=== PATIENT | female | born 1965 | race Two or more races ===

== ENCOUNTER 2018-10-09 21:10 | Inpatient (IN) | payer MEDICAID ==
[~2018-10-09] VITALS: Ht 160 cm; Wt 75.8 kg
[2018-10-09] MEDS ORDERED: ATORVASTATIN CA20 MG ORAL (21:16)
[2018-10-09] MEDS ORDERED: TOPAMAX25 MG ORAL (21:16)
[2018-10-09] MEDS ORDERED: TIZANIDINE HCL4 MG ORAL (21:17)
[2018-10-09] MEDS ORDERED: ACETAMINOPHEN500 M5 ORAL (21:17)
[2018-10-09] MEDS ORDERED: MAGNESIUM OXID240 MG PO (21:18)
[2018-10-09] MEDS ORDERED: NIMODIPINE30 MG ORAL (21:18)
[2018-10-09 21:20] VITALS: BP 143/76
--- NOTE | 2018-10-09 21:20 | NUR ---
ED Nurse Note: RA [id number] from home with c/o generalized weakness, headache on left side. pain is 9/10 pt has hx of stroke. pt states she struggles walking due to previous stalks left side weakeness present
--- NOTE | 2018-10-09 21:26 | Emergency Room Report ---
History of Present Illness General Chief Complaint: General Complaint Source: Patient, EMS Present Illness HPI Patient presents with one hour of blurred vision, increased weakness and worsened headache. She has a chronic headache. She has been told that she has problems with circulation to her brain. She's had a stroke recently. There is left-sided weakness. She denies any chest pain or palpitations. There is nausea and she vomited one time this morning. The pain is rated 9/10 and pressure and right frontal. There is no loss of vision but she says her vision is blurry. She's also anxious. She denies any fevers or chills, productive cough or dyspnea. There's been no dysuria or change in bowels. She has chronic weakness and decreased sensation on the left-hand side. She denies h/o migraines. She says the headache has been present since the stroke but it has worsened today. She takes topiramate and tizanidine. She also take nimodipine. Allergies: Coded Allergies: No Known Allergies (Unverified , 10/09/18) Patient History Past Medical History: see triage record Social History: Denies: smoking, alcohol use, drug use Social History Narrative with daughter Reviewed Nursing Documentation: PMH: Agreed; PSxH: Agreed Nursing Documentation-PMH Past Medical History: No History, Except For Hx Cerebrovascular Accident: Yes Review of Systems All Other Systems: negative except mentioned in HPI Physical Exam Vital Signs Date Time Temp Pulse Resp B/P (MAP) Pulse Ox O2 Delivery O2 Flow Rate FiO2 10/09/18 21:10 98.1 86 18 96 Room Air Sp02 EP Interpretation: reviewed, normal General Appearance: well appearing, no apparent distress, GCS 15 Head: normocephalic Eyes: bilateral eye normal inspection, bilateral eye PERRL, bilateral eye EOMI ENT: moist mucus membranes Neck: supple Respiratory: lungs clear, normal breath sounds Cardiovascular #1: regular rate, rhythm Cardiovascular #2: 2+ radial (R) Gastrointestinal: normal inspection, normal bowel sounds, non tender, no mass, non-distended Musculoskeletal: back normal, gait/station normal, normal range of motion, no calf tenderness Neurologic: alert, oriented x3, panel instrument repairer III-XII nml as tested, DTRs symmetric, motor weakness - L sided, sensory deficit - minimal L sided Psychiatric: depressed affect, anxious Skin: normal inspection, warm/dry Medical Decision Making Diagnostic Impression: Primary Impression: Head ache Qualified Codes: G44.89 - Other headache syndrome Additional Impressions: Status post stroke UTI (urinary tract infection) Qualified Codes: N30.00 - Acute cystitis without hematuria Elevated liver enzymes ER Course Patient presents with blurred vision headache and possibly increased weakness with a history of strokes. Differential includes stroke, migraine, brain bleed , anxiety, acute myocardial infarction amongst others. The patient will be evaluated with EKG, CT of the head, chest x-ray and labs. The patient will be treated with gentle IV hydration, Zofran and morphine. Stomach cardiac cath technician. EKG no injury. CXR unremarkable. CT involutional changes. Elevated liver function tests. Pyuria. Rocephin given. Repeat morphine as still with headache. Neuro unchanged. Needs observation and repeat neurologic exam. Possible MRI. Admit tele Dr. Landis. Laboratory Tests Test 10/09/18 21:27 White Blood Count 5.7 K/UL (4.8-10.8) Red Blood Count 3.84 M/UL (4.20-5.40) L Hemoglobin 12.1 G/DL (12.0-16.0) Hematocrit 35.9 % (37.0-47.0) L Mean Corpuscular Volume 94 FL (80-99) Mean Corpuscular Hemoglobin 31.6 PG (27.0-31.0) H Mean Corpuscular Hemoglobin Concent 33.8 G/DL (32.0-36.0) Red Cell Distribution Width 12.5 % (11.6-14.8) Platelet Count 208 K/UL (150-450) Mean Platelet Volume 7.0 FL (6.5-10.1) Neutrophils (%) (Auto) 45.5 % (45.0-75.0) Lymphocytes (%) (Auto) 42.3 % (20.0-45.0) Monocytes (%) (Auto) 8.6 % (1.0-10.0) Eosinophils (%) (Auto) 2.0 % (0.0-3.0) Basophils (%) (Auto) 1.6 % (0.0-2.0) Prothrombin Time 10.5 SEC (9.30-11.50) Prothrombin Time INR 1.0 (0.9-1.1) PTT 26 SEC (23-33) Urine Color Pale yellow Urine Appearance Slightly cloudy Urine pH 7 (4.5-8.0) Urine Specific [place] 1.010 (1.005-1.035) Urine Protein Negative (NEGATIVE) Urine Glucose (UA) Negative (NEGATIVE) Urine Ketones Negative (NEGATIVE) Urine Blood Negative (NEGATIVE) Urine Nitrite Negative (NEGATIVE) Urine Bilirubin Negative (NEGATIVE) Urine Urobilinogen Normal MG/DL (0.0-1.0) Urine Leukocyte Esterase 3+ (NEGATIVE) H Urine RBC 0-2 /HPF (0 - 2) Urine WBC 20-30 /HPF (0 - 2) H Urine Squamous Epithelial Cells Moderate /LPF (NONE/OCC) H Urine Bacteria Moderate /HPF (NONE) H Sodium Level 144 MMOL/L (136-145) Potassium Level 3.5 MMOL/L (3.5-5.1) Chloride Level 108 MMOL/L (98-107) H Carbon Dioxide Level 26 MMOL/L (21-32) Anion Gap 10 mmol/L (5-15) Blood Urea Nitrogen 18 mg/dL (7-18) Creatinine 0.7 MG/DL (0.55-1.30) Estimate Glomerular Filtration Rate > 60 mL/min (>60) Glucose Level 110 MG/DL (74-106) H Calcium Level 9.4 MG/DL (8.5-10.1) Total Bilirubin 0.4 MG/DL (0.2-1.0) Aspartate Amino Transferase (AST) 61 U/L (15-37) H Alanine Aminotransferase (ALT) 206 U/L (12-78) H Alkaline Phosphatase 159 U/L (46-116) H Total Creatine Kinase 59 U/L (26-308) Troponin I 0.000 ng/mL (0.000-0.056) Pro-B-Type Natriuretic Peptide 55 pg/mL (0-125) Total Protein 7.7 G/DL (6.4-8.2) Albumin 3.9 G/DL (3.4-5.0) Globulin 3.8 g/dL Albumin/Globulin Ratio 1.0 (1.0-2.7) EKG Diagnostic Results Rate: normal Rhythm: NSR ST Segments: no acute changes - Incomplete right bundle-branch block Rhythm Strip Diag. Results EP Interpretation: yes Rhythm: NSR, no PVC's, no ectopy Chest X-Ray Diagnostic Results Chest X-Ray Diagnostic Results : Chest X-Ray Ordered: Yes # of Views/Limited/Complete: 1 View Indication: Other EP Interpretation: Yes Interpretation: no consolidation, no effusion, no pneumothorax Impression: No acute disease Electronically Signed by: Electronically signed by Shiva Torres MD CT/MRI/US Diagnostic Results CT/MRI/US Diagnostic Results : Imaging Test Ordered: head Impression involutional changes Last Vital Signs Date Time Temp Pulse Resp B/P (MAP) Pulse Ox O2 Delivery O2 Flow Rate FiO2 10/10/18 12:00 97.6 67 20 114/67 (83) 97 10/10/18 08:00 Room Air Status: improved Disposition: ADMITTED INPATIENT Condition: Serious Shiva Torres MD October 09, 2018 21:26
[2018-10-09] MEDS ORDERED: Morphine Sulfate 4mg/ml Inj (IV USE ONLY) IVP ONE (21:30)
--- NOTE | 2018-10-09 21:30 | NUR ---
ED Nurse Note: blood and urine specimen sent to lab
[2018-10-09] MEDS: Sodium Chloride 550 ML IV SCH (21:36)
[2018-10-09 22:04] LABS: APPEARANCE,URINE SLIGHTLY CLOUDY; BILIRUBIN, URINE NEGATIVE (NEGATIVE); COLOR,URINE PALE YELLOW; GLUCOSE, URINE (UA) NEGATIVE (NEGATIVE); KETONES,URINE NEGATIVE (NEGATIVE); LEUKOCYTE ESTERASE ,URINE 3+ (NEGATIVE); NITRITE,URINE NEGATIVE (NEGATIVE); PH,URINE 7 (4.5-8.0); PROTEIN,URINE NEGATIVE (NEGATIVE); UROBILINOGEN,URINE NORMAL MG/DL (0.0-1.0)
[2018-10-09 22:05] LABS: BASOPHILS % (AUTO) 1.6 % (0.0-2.0); HEMATOCRIT 35.9 % (37.0-47.0); HEMOGLOBIN 12.1 G/DL (12.0-16.0); LYMPHOCYTES % (AUTO) 42.3 % (20.0-45.0); MEAN CORPUSCULAR VOLUME 94 FL (80-99); MONOCYTES % (AUTO) 8.6 % (1.0-10.0); NEUTROPHILS % (AUTO) 45.5 % (45.0-75.0); PLATELET COUNT 208 K/UL (150-450); RED BLOOD COUNT 3.84 M/UL (4.20-5.40); RED CELL DISTRIBUTION WIDTH 12.5 % (11.6-14.8); WHITE BLOOD COUNT 5.7 K/UL (4.8-10.8)
[2018-10-09 22:22] LABS: ANION GAP 10 mmol/L (5-15); BLOOD UREA NITROGEN 18 mg/dL (7-18); CALCIUM 9.4 MG/DL (8.5-10.1); CARBON DIOXIDE 26 MMOL/L (21-32); CHLORIDE 108 MMOL/L (98-107); CREATININE 0.7 MG/DL (0.55-1.30); POTASSIUM 3.5 MMOL/L (3.5-5.1); SODIUM 144 MMOL/L (136-145)
[2018-10-09 22:34] LABS: ALANINE AMINOTRANSFERASE 206 U/L (12-78); ALBUMIN 3.9 G/DL (3.4-5.0); ALKALINE PHOSPHATASE 159 U/L (46-116); ASPARTATE AMINO TRANSFERASE 61 U/L (15-37); BILIRUBIN,TOTAL 0.4 MG/DL (0.2-1.0); CREATINE KINASE 59 U/L (26-308)
[2018-10-09] MEDS ORDERED: cefTRIAXone 1 GM in NS 55 ML IVPB ONE (23:15)
[2018-10-09 23:30] VITALS: BP 137/80
--- NOTE | 2018-10-10 00:08 | NUR ---
ED Nurse Note: telephone repot given to JENNIFER Ohara for continuity of care
[2018-10-10] MEDS ORDERED: Morphine Sulfate 4mg/ml Inj (IV USE ONLY) ONE (00:13)
[2018-10-10] MEDS ORDERED: Morphine Sulfate 4mg/ml Inj (IV USE ONLY) IVP PRN ×2 (00:15→02:15)
--- NOTE | 2018-10-10 00:20 | NUR ---
ED Nurse Note: pt was sent up with playground monitor, accompanied by gayle tse and giselle valdez. pt is aox4, denies pain at the moment, vss, skin intact, on room air. pt family has taken all belongings except for cellphone, infrastructure administrator, pants.
[2018-10-10] MEDS: Sodium Chloride 550 ML IV SCH ×2 (01:10→10:07)
[2018-10-10] MEDS ORDERED: TOPIRAMATE50 MG ORAL (01:46)
[2018-10-10] MEDS ORDERED: TIZANIDINE HCL4 M2 ORAL (01:48)
[2018-10-10] MEDS ORDERED: NIMODIPINE30 MG ORAL (01:50)
[2018-10-10] MEDS ORDERED: MAGNESIUM OXID400 M2 PO (01:52)
[2018-10-10] MEDS: D5 1/2NS 1,000 ML IV SCH ×2 (03:07→18:22)
--- NOTE | 2018-10-10 04:00 | NUR ---
Orders upon admission entered to/rb from Dr Landis
[2018-10-10 06:30] LABS: EOSINOPHILS % (AUTO) 1.2 % (0.0-3.0); HEMATOCRIT 34.1 % (37.0-47.0); HEMOGLOBIN 11.3 G/DL (12.0-16.0); LYMPHOCYTES % (AUTO) 44.5 % (20.0-45.0); MEAN CORPUSCULAR VOLUME 95 FL (80-99); MONOCYTES % (AUTO) 7.7 % (1.0-10.0); NEUTROPHILS % (AUTO) 45.6 % (45.0-75.0); PLATELET COUNT 190 K/UL (150-450); RED BLOOD COUNT 3.58 M/UL (4.20-5.40); RED CELL DISTRIBUTION WIDTH 12.4 % (11.6-14.8); WHITE BLOOD COUNT 4.2 K/UL (4.8-10.8)
[2018-10-10 06:49] LABS: ANION GAP 9 mmol/L (5-15); BLOOD UREA NITROGEN 12 mg/dL (7-18); CARBON DIOXIDE 26 MMOL/L (21-32); CHLORIDE 108 MMOL/L (98-107); CREATININE 0.6 MG/DL (0.55-1.30); POTASSIUM 3.7 MMOL/L (3.5-5.1); SODIUM 142 MMOL/L (136-145)
--- NOTE | 2018-10-10 07:39 | NUR ---
Report given to Ghislaine RODRIGUEZ. Patient is alert and oriented x4, eating breakfast in bed. patient has no c/o pain at this time. Home medications brought down to pharmacy. Endorsed to daysrustam RODRIGUEZ.
--- NOTE | 2018-10-10 07:39 | NUR ---
NURSE NOTES: Patient is alert and oriented X4. Patient is resting in bed, eating breakfast. Patient reports headache 7/10. Will give pain medication. Bed is locked, in lowest position, and call light is within reach. Patient is on room air. IV is intact and IVF is running at 60 ml/hr. Will continue to monitor.
[2018-10-10 08:00] VITALS: BP 103/59
[2018-10-10] MEDS: Magnesium Oxide 400mg tab ORAL SCH ×2 (08:18→17:19)
[2018-10-10] MEDS: Morphine Sulfate 2mg/ml Inj(IV/IM USE ONLY) IVP PRN ×2 (08:19→17:37)
--- NOTE | 2018-10-10 09:57 | NUR ---
NURSE NOTES: No DVT order. Dr. Cosby notified. New order received.
--- NOTE | 2018-10-10 10:09 | Diagnostic Imaging Report ---
Indication: Headache Technique: Contiguous 5 mm thick transaxial imaging of the head obtained in a Siemens Sensation [address] scanner. Soft tissue and bone windows generated. Automatic Exposure Control was utilized. Total Dose length Product (DLP): [address] Dose Index Volume (CTDIvol): 70.38 mGy Comparison: none Findings: There is mild prominence of the ventricles, basal cisterns, and cerebral sulci consistent with atrophy. Mild, nonspecific, white matter hypoattenuation is noted throughout the brain consistent with chronic small vessel disease. There is no midline shift, edema, acute hemorrhage, mass effect, or abnormal extra-axial fluid collections. Bones and extra osseous soft tissues are unremarkable. Impression: No acute intracranial bleed, mass effect or edema. Mild atrophy of the brain. Nonspecific white matter hypoattenuation probably due to chronic small vessel disease. [facility] has communicated the preliminary results to the Emergency Department. Their findings are largely concordant with this report. The CT scanner at [facility] is accredited by the [employer] and the scans are performed using dose optimization techniques as appropriate to a performed exam including Automatic Exposure control.
--- NOTE | 2018-10-10 11:45 | Diagnostic Imaging Report ---
Indication: Dyspnea Comparison: None A single view chest radiograph was obtained. Findings: Cardiomediastinal appearance is within normal limits for age. The lungs are clear. Pulmonary vascularity is appropriate. The diaphragmatic contour is smooth and costophrenic angles are sharp. No pleural effusions are identified. The bones are unremarkable. Impression: No acute findings
[2018-10-10 12:00] VITALS: BP 114/67
--- NOTE | 2018-10-10 12:12 | NUR ---
CASE MANAGEMENT:REVIEW 53 YR OLD FEMALE BIBA FROM HOME CC: GENERALIZED WEAKNESS PMH: STROKE 2 MONTHS AGO SI: HEADACHE. UTI. ELEVATED LIVER ENZYMES 98.1 86 18 143/76 96% ON RA GLUCOSE+110 AST/ALT+61/206 IS: IV MORPHINE IV ZOFRAN 500CC NS BOLUS IV ROCEPHIN URINE CX CT HEAD : TO TELEMETRY PLAN: PT EVAL INTERQUAL CRITERIA MET
[2018-10-10] MEDS: NIMODIPINE 30 MG ORAL SCH ×2 (15:29→21:01)
[2018-10-10 16:00] VITALS: BP 120/63
[2018-10-10] MEDS ORDERED: D5 1/2NS 1000ml IV ONE (16:07)
--- NOTE | 2018-10-10 16:44 | NUR ---
P.T NOTE: P.T EVALUATION COMPLETED. PATIENT IS INDEPENDENT WITH ADL/SELF CARE AND GAIT/AMBULATION USING THE FWW. CURRENT FUNCTIONAL STATUS DOES NOT WARRANT SKILLED P.T SERVICE IN ACUTE SETTING. PATIENT STATED SHE HAS A SCHEDULED APPOINTMENT SET FOR AN OUTPATIENT REHAB FOR HIGHER BALANCE TRAINING TO FURTHER IMPROVE STRENGTH AND GAIT STABILITY. NO FURTHER SKILLED P.T NEEDS IN ACUTE CARE SETTING. DC P.T SERVICES. THANK YOU FOR THIS REFERRAL.
--- NOTE | 2018-10-10 18:59 | Consultation ---
History of Present Illness General Date patient seen: October 10, 2018 Chief Complaint: General Complaint Present Illness HPI 53 y/o F with hx of chronic headaches, recent CVA w/ L side weakness presents to ED on 10/09 with 1 hr of blurred vision, increased weakness and worsened headache. Pain rated 9/10, pressure quality and located on R frontal area and associated with nausea and vomiting x1 Denied CP, palpitations, loss of vision, f/c, cough, dyspnea, dysuria. Allergies: Coded Allergies: No Known Allergies (Unverified , 10/09/18) Medication History Scheduled Acetaminophen (Acetaminophen), 325 MG ORAL Q4H, (Reported) Atorvastatin Calcium* (Atorvastatin Calcium*), 20 MG ORAL BEDTIME, (Reported) Magnesium Oxide (Magnesium Oxide), 400 MG PO BID, (Reported) Nimodipine (Nimodipine), 30 MG ORAL THREE TIMES A DAY, (Reported) Tizanidine Hcl (Tizanidine Hcl), 4 MG ORAL QHS, (Reported) Topiramate (Topiramate), 50 MG ORAL QHS, (Reported) Discontinued Medications Nimodipine (Nimodipine), 30 MG ORAL, (Reported) Discontinued Reason: Medication dose changed Topiramate* (Topamax*), 50 MG ORAL EVERY 12 HOURS, (Reported) Discontinued Reason: Medication dose changed Patient History Healthcare decision maker Resuscitation status Full Code Advanced Directive on File Patient History Narrative Pmhx: as above Shx: Denies: smoking, alcohol use, drug use Fhx: non contributory Review of Systems All Other Systems: negative except mentioned in HPI Physical Exam Physical Exam Narrative Gen: no distress HEENT: PERRL, no oral lesions Neck; supple Lungs: CTA x1 Abd: BS+, S+D, NT, ND Extre: no rash Last 24 Hour Vital Signs Date Time Temp Pulse Resp B/P (MAP) Pulse Ox O2 Delivery O2 Flow Rate FiO2 10/10/18 16:00 97.9 64 20 120/63 (82) 97 10/10/18 16:00 69 10/10/18 12:00 97.6 67 20 114/67 (83) 97 10/10/18 12:00 77 10/10/18 08:00 98.7 76 22 103/59 (74) 97 10/10/18 08:00 83 10/10/18 08:00 Room Air 10/10/18 04:00 62 10/10/18 01:10 Room Air 10/10/18 00:49 98.1 76 20 145/82 100 Room Air 10/10/18 00:14 98.1 10/09/18 23:30 98.2 86 18 137/80 100 Room Air 10/09/18 21:20 98.1 86 18 143/76 96 Room Air 10/09/18 21:20 86 18 Room Air 10/09/18 21:10 98.1 86 18 96 Room Air Intake and Output 10/09/18 10/10/18 19:00 07:00 Intake Total 115 ml Output Total 1 ml Balance 114 ml IV Total 115 ml Output Urine Total 1 ml # Voids 4 Laboratory Tests Test 10/09/18 21:27 10/10/18 06:08 White Blood Count 5.7 K/UL (4.8-10.8) 4.2 K/UL (4.8-10.8) L Red Blood Count 3.84 M/UL (4.20-5.40) L 3.58 M/UL (4.20-5.40) L Hemoglobin 12.1 G/DL (12.0-16.0) 11.3 G/DL (12.0-16.0) L Hematocrit 35.9 % (37.0-47.0) L 34.1 % (37.0-47.0) L Mean Corpuscular Volume 94 FL (80-99) 95 FL (80-99) Mean Corpuscular Hemoglobin 31.6 PG (27.0-31.0) H 31.7 PG (27.0-31.0) H Mean Corpuscular Hemoglobin Concent 33.8 G/DL (32.0-36.0) 33.3 G/DL (32.0-36.0) Red Cell Distribution Width 12.5 % (11.6-14.8) 12.4 % (11.6-14.8) Platelet Count 208 K/UL (150-450) 190 K/UL (150-450) Mean Platelet Volume 7.0 FL (6.5-10.1) 7.4 FL (6.5-10.1) Neutrophils (%) (Auto) 45.5 % (45.0-75.0) 45.6 % (45.0-75.0) Lymphocytes (%) (Auto) 42.3 % (20.0-45.0) 44.5 % (20.0-45.0) Monocytes (%) (Auto) 8.6 % (1.0-10.0) 7.7 % (1.0-10.0) Eosinophils (%) (Auto) 2.0 % (0.0-3.0) 1.2 % (0.0-3.0) Basophils (%) (Auto) 1.6 % (0.0-2.0) 1.0 % (0.0-2.0) Prothrombin Time 10.5 SEC (9.30-11.50) Prothromb Time International Ratio 1.0 (0.9-1.1) Activated Partial Thromboplast Time 26 SEC (23-33) Urine Color Pale yellow Urine Appearance Slightly cloudy Urine pH 7 (4.5-8.0) Urine Specific [place] 1.010 (1.005-1.035) Urine Protein Negative (NEGATIVE) Urine Glucose (UA) Negative (NEGATIVE) Urine Ketones Negative (NEGATIVE) Urine Blood Negative (NEGATIVE) Urine Nitrite Negative (NEGATIVE) Urine Bilirubin Negative (NEGATIVE) Urine Urobilinogen Normal MG/DL (0.0-1.0) Urine Leukocyte Esterase 3+ (NEGATIVE) H Urine RBC 0-2 /HPF (0 - 2) Urine WBC 20-30 /HPF (0 - 2) H Urine Squamous Epithelial Cells Moderate /LPF (NONE/OCC) H Urine Bacteria Moderate /HPF (NONE) H Sodium Level 144 MMOL/L (136-145) 142 MMOL/L (136-145) Potassium Level 3.5 MMOL/L (3.5-5.1) 3.7 MMOL/L (3.5-5.1) Chloride Level 108 MMOL/L (98-107) H 108 MMOL/L (98-107) H Carbon Dioxide Level 26 MMOL/L (21-32) 26 MMOL/L (21-32) Anion Gap 10 mmol/L (5-15) 9 mmol/L (5-15) Blood Urea Nitrogen 18 mg/dL (7-18) 12 mg/dL (7-18) Creatinine 0.7 MG/DL (0.55-1.30) 0.6 MG/DL (0.55-1.30) Estimat Glomerular Filtration Rate > 60 mL/min (>60) > 60 mL/min (>60) Glucose Level 110 MG/DL (74-106) H 99 MG/DL (74-106) Calcium Level 9.4 MG/DL (8.5-10.1) 9.0 MG/DL (8.5-10.1) Total Bilirubin 0.4 MG/DL (0.2-1.0) Aspartate Amino Transf (AST/SGOT) 61 U/L (15-37) H Alanine Aminotransferase (ALT/SGPT) 206 U/L (12-78) H Alkaline Phosphatase 159 U/L (46-116) H Total Creatine Kinase 59 U/L (26-308) Troponin I 0.000 ng/mL (0.000-0.056) Pro-B-Type Natriuretic Peptide 55 pg/mL (0-125) Total Protein 7.7 G/DL (6.4-8.2) Albumin 3.9 G/DL (3.4-5.0) Globulin 3.8 g/dL Albumin/Globulin Ratio 1.0 (1.0-2.7) Height (Feet): 5 Height (Inches): 3.00 Weight (Pounds): 160 Medications Current Medications Medications (Trade) Dose Ordered Sig/Radha Route PRN Reason Start Time Stop Time Status Last Admin Dose Admin Acetaminophen (Tylenol) 650 mg Q6H PRN ORAL PAIN 1-5 10/10/18 07:15 11/09/18 02:14 Atorvastatin Calcium (Lipitor) 20 mg BEDTIME ORAL 10/10/18 21:00 11/09/18 20:59 Dextrose/Sodium Chloride 1,000 ml @ 60 mls/hr [id number] IV 10/10/18 02:30 11/09/18 02:29 10/10/18 18:22 Heparin Sodium (Porcine) (Heparin 5000 units/ml) 5,000 units EVERY 12 HOURS SUBQ 10/10/18 21:00 11/09/18 20:59 Magnesium Oxide (Mag-Ox 400mg) 400 mg BID ORAL 10/10/18 09:00 11/09/18 08:59 10/10/18 17:19 Morphine Sulfate (Morphine Sulfate) 2 mg Q4H PRN IVP Severe Pain (Pain Scale 7-10) 10/10/18 06:15 10/17/18 02:14 10/10/18 17:37 Patient Own Medication (Patient's Own Med) 1 ea Q8HR ORAL 10/10/18 14:00 11/09/18 13:59 10/10/18 15:29 Tizanidine HCl (Zanaflex) 4 mg QHS ORAL 10/10/18 21:00 11/09/18 20:59 Topiramate (Topamax) 50 mg QHS ORAL 10/10/18 21:00 11/09/18 20:59 Assessment/Plan Assessment/Plan: Abx: Ceftriaxone x1 10/09 Assessment: Headache, N/v- doubt meningitis (afebrile)- -CT head: No acute intracranial bleed, mass effect or edema. Mild atrophy of the brain. Nonspecific white matter hypoattenuation probably due to chronic small vessel disease. Afebrile No leukocytosis -CXR: No acute findings Dysuria- probable UTI -u/a wbc 25-30, nit neg, leuk +3, sq cells moderate Elevated LFts- r/o hepatobiliary disease chronic headaches recent CVA w/ L side weakness Plan: -Continue empiric Ceftriaxone pending repeat urinalysis and culture -f/u cx -Monitor CBC/CMP, temperatures -CBC, CMP, hep serologies am -Abd US -Neuro eval Thank you for this consultation. Will continue to follow along with you. Discussed with Mary Kate Caraballo M.D. October 10, 2018 18:59
--- NOTE | 2018-10-10 19:16 | NUR ---
HAND-OFF: Report given to JENNIFER Sales.
--- NOTE | 2018-10-10 19:30 | Consultation ---
History of Present Illness General Date patient seen: October 10, 2018 Chief Complaint: Headache / SAH Referring physician: Dr. Cosby Present Illness Allergies: Coded Allergies: No Known Allergies (Unverified , 10/09/18) Medication History Scheduled Acetaminophen (Acetaminophen), 325 MG ORAL Q4H, (Reported) Atorvastatin Calcium* (Atorvastatin Calcium*), 20 MG ORAL BEDTIME, (Reported) Magnesium Oxide (Magnesium Oxide), 400 MG PO BID, (Reported) Nimodipine (Nimodipine), 30 MG ORAL THREE TIMES A DAY, (Reported) Tizanidine Hcl (Tizanidine Hcl), 4 MG ORAL QHS, (Reported) Topiramate (Topiramate), 50 MG ORAL QHS, (Reported) Discontinued Medications Nimodipine (Nimodipine), 30 MG ORAL, (Reported) Discontinued Reason: Medication dose changed Topiramate* (Topamax*), 50 MG ORAL EVERY 12 HOURS, (Reported) Discontinued Reason: Medication dose changed Patient History Healthcare decision maker Resuscitation status Full Code Advanced Directive on File Past Medical/Surgical History Past Medical/Surgical History: (1) UTI (urinary tract infection) (2) Status post stroke Review of Systems Constitutional: Reports: weakness Eye: Denies: no symptoms, see HPI, eye pain, blurred vision, tearing, double vision, nose pain, nose congestion, acuity changes, discharge, other ENT: Denies: no symptoms, see HPI, ear pain, ear discharge, nose pain, nose congestion, throat pain, throat swelling, mouth pain, hearing loss, nasal discharge, other Respiratory: Denies: no symptoms, see HPI, cough, orthopnea, shortness of breath, stridor, wheezing, ABAD, sputum, other Cardiovascular: Denies: no symptoms, see HPI, chest pain, edema, palpitations, syncope, PND, other Gastrointestinal: Reports: nausea, vomiting Genitourinary: Reports: dysuria, frequency Musculoskeletal: Reports: muscle stiffness Skin: Reports: no symptoms Psychiatric: Reports: no symptoms Neurological: Reports: headache, focal weakness Endocrine: Denies: no symptoms, see HPI, excessive sweating, flushing, intolerance to temperature, increased thirst, increased urine, unexplained weight loss, other Hematologic/Lymphatic: Denies: no symptoms, see HPI, anemia, blood clots, easy bleeding, easy bruising, swollen glands, diathesis, other Physical Exam General Appearance: WD/WN, no apparent distress, alert, alert oriented x3 Lines, tubes and drains: peripheral HEENT: normocephalic, atraumatic, mucous membranes moist, PERRL, EOMI, pharynx normal, no JVD Neck: non-tender, normal alignment, supple, normal inspection Respiratory/Chest: normal breath sounds, no respiratory distress, no accessory muscle use Cardiovascular/Chest: normal peripheral pulses, normal rate Extremities: normal range of motion, non-tender, normal inspection, no calf tenderness, normal capillary refill, non-pitting, no edema Skin Exam: normal pigmentation, warm/dry, no diaphoresis Neurologic: alert, oriented x 3, responsive, normal mood/affect, motor weakness - Left Leg 3/5 distally weaker and Arm 3/5 Musculoskeletal: normal muscle bulk, no effusion Last 24 Hour Vital Signs Date Time Temp Pulse Resp B/P (MAP) Pulse Ox O2 Delivery O2 Flow Rate FiO2 10/10/18 16:00 97.9 64 20 120/63 (82) 97 10/10/18 16:00 69 10/10/18 12:00 97.6 67 20 114/67 (83) 97 10/10/18 12:00 77 10/10/18 08:00 98.7 76 22 103/59 (74) 97 10/10/18 08:00 83 10/10/18 08:00 Room Air 10/10/18 04:00 62 10/10/18 01:10 Room Air 10/10/18 00:49 98.1 76 20 145/82 100 Room Air 10/10/18 00:14 98.1 10/09/18 23:30 98.2 86 18 137/80 100 Room Air 10/09/18 21:20 98.1 86 18 143/76 96 Room Air 10/09/18 21:20 86 18 Room Air 10/09/18 21:10 98.1 86 18 96 Room Air Intake and Output 10/09/18 10/10/18 19:00 07:00 Intake Total 115 ml Output Total 1 ml Balance 114 ml IV Total 115 ml Output Urine Total 1 ml # Voids 4 Laboratory Tests Test 10/09/18 21:27 10/10/18 06:08 White Blood Count 5.7 K/UL (4.8-10.8) 4.2 K/UL (4.8-10.8) L Red Blood Count 3.84 M/UL (4.20-5.40) L 3.58 M/UL (4.20-5.40) L Hemoglobin 12.1 G/DL (12.0-16.0) 11.3 G/DL (12.0-16.0) L Hematocrit 35.9 % (37.0-47.0) L 34.1 % (37.0-47.0) L Mean Corpuscular Volume 94 FL (80-99) 95 FL (80-99) Mean Corpuscular Hemoglobin 31.6 PG (27.0-31.0) H 31.7 PG (27.0-31.0) H Mean Corpuscular Hemoglobin Concent 33.8 G/DL (32.0-36.0) 33.3 G/DL (32.0-36.0) Red Cell Distribution Width 12.5 % (11.6-14.8) 12.4 % (11.6-14.8) Platelet Count 208 K/UL (150-450) 190 K/UL (150-450) Mean Platelet Volume 7.0 FL (6.5-10.1) 7.4 FL (6.5-10.1) Neutrophils (%) (Auto) 45.5 % (45.0-75.0) 45.6 % (45.0-75.0) Lymphocytes (%) (Auto) 42.3 % (20.0-45.0) 44.5 % (20.0-45.0) Monocytes (%) (Auto) 8.6 % (1.0-10.0) 7.7 % (1.0-10.0) Eosinophils (%) (Auto) 2.0 % (0.0-3.0) 1.2 % (0.0-3.0) Basophils (%) (Auto) 1.6 % (0.0-2.0) 1.0 % (0.0-2.0) Prothrombin Time 10.5 SEC (9.30-11.50) Prothromb Time International Ratio 1.0 (0.9-1.1) Activated Partial Thromboplast Time 26 SEC (23-33) Urine Color Pale yellow Urine Appearance Slightly cloudy Urine pH 7 (4.5-8.0) Urine Specific Williams 1.010 (1.005-1.035) Urine Protein Negative (NEGATIVE) Urine Glucose (UA) Negative (NEGATIVE) Urine Ketones Negative (NEGATIVE) Urine Blood Negative (NEGATIVE) Urine Nitrite Negative (NEGATIVE) Urine Bilirubin Negative (NEGATIVE) Urine Urobilinogen Normal MG/DL (0.0-1.0) Urine Leukocyte Esterase 3+ (NEGATIVE) H Urine RBC 0-2 /HPF (0 - 2) Urine WBC 20-30 /HPF (0 - 2) H Urine Squamous Epithelial Cells Moderate /LPF (NONE/OCC) H Urine Bacteria Moderate /HPF (NONE) H Sodium Level 144 MMOL/L (136-145) 142 MMOL/L (136-145) Potassium Level 3.5 MMOL/L (3.5-5.1) 3.7 MMOL/L (3.5-5.1) Chloride Level 108 MMOL/L (98-107) H 108 MMOL/L (98-107) H Carbon Dioxide Level 26 MMOL/L (21-32) 26 MMOL/L (21-32) Anion Gap 10 mmol/L (5-15) 9 mmol/L (5-15) Blood Urea Nitrogen 18 mg/dL (7-18) 12 mg/dL (7-18) Creatinine 0.7 MG/DL (0.55-1.30) 0.6 MG/DL (0.55-1.30) Estimat Glomerular Filtration Rate > 60 mL/min (>60) > 60 mL/min (>60) Glucose Level 110 MG/DL (74-106) H 99 MG/DL (74-106) Calcium Level 9.4 MG/DL (8.5-10.1) 9.0 MG/DL (8.5-10.1) Total Bilirubin 0.4 MG/DL (0.2-1.0) Aspartate Amino Transf (AST/SGOT) 61 U/L (15-37) H Alanine Aminotransferase (ALT/SGPT) 206 U/L (12-78) H Alkaline Phosphatase 159 U/L (46-116) H Total Creatine Kinase 59 U/L (26-308) Troponin I 0.000 ng/mL (0.000-0.056) Pro-B-Type Natriuretic Peptide 55 pg/mL (0-125) Total Protein 7.7 G/DL (6.4-8.2) Albumin 3.9 G/DL (3.4-5.0) Globulin 3.8 g/dL Albumin/Globulin Ratio 1.0 (1.0-2.7) Height (Feet): 5 Height (Inches): 3.00 Weight (Pounds): 160 Medications Current Medications Medications (Trade) Dose Ordered Sig/Radha Route PRN Reason Start Time Stop Time Status Last Admin Dose Admin Acetaminophen (Tylenol) 650 mg Q6H PRN ORAL PAIN 1-5 10/10/18 07:15 11/09/18 02:14 Atorvastatin Calcium (Lipitor) 20 mg BEDTIME ORAL 10/10/18 21:00 11/09/18 20:59 Dextrose/Sodium Chloride 1,000 ml @ 60 mls/hr [id number] IV 10/10/18 02:30 11/09/18 02:29 10/10/18 18:22 Heparin Sodium (Porcine) (Heparin 5000 units/ml) 5,000 units EVERY 12 HOURS SUBQ 10/10/18 21:00 11/09/18 20:59 Magnesium Oxide (Mag-Ox 400mg) 400 mg BID ORAL 10/10/18 09:00 11/09/18 08:59 10/10/18 17:19 Morphine Sulfate (Morphine Sulfate) 2 mg Q4H PRN IVP Severe Pain (Pain Scale 7-10) 10/10/18 06:15 10/17/18 02:14 10/10/18 17:37 Patient Own Medication (Patient's Own Med) 1 ea Q8HR ORAL 10/10/18 14:00 11/09/18 13:59 10/10/18 15:29 Tizanidine HCl (Zanaflex) 4 mg QHS ORAL 10/10/18 21:00 11/09/18 20:59 Topiramate (Topamax) 50 mg QHS ORAL 10/10/18 21:00 11/09/18 20:59 Assessment/Plan Problem List: (1) Hemiparesis ICD Codes: G81.90 - Hemiplegia, unspecified affecting unspecified side SNOMED: 34104144 (2) UTI (urinary tract infection) ICD Codes: N39.0 - Urinary tract infection, site not specified SNOMED: 54392364 Qualifiers: Qualified Codes: N30.00 - Acute cystitis without hematuria (3) Status post stroke Assessment & Plan: Has been on Nimodopine and reports that she was told she has "wavy" vessels in her head that caused multiple strokes for previous hospitalization in last 2 months at [facility] She [facility] and was again at her home when these symptoms began to reappear. ICD Codes: Z86.73 - Personal history of transient ischemic attack (TIA), and cerebral infarction without residual deficits SNOMED: 981626167 (4) Head ache ICD Codes: R51 - Headache SNOMED: 22967022 Qualifiers: Qualified Codes: G44.89 - Other headache syndrome Status: stable Assessment/Plan: Need to assess for vasospasm and new CVA presently. Continue Nimodipine and discuss dosage increase as necessary MRI Brain STAT to rule out acute CVA Consider TCD or CTA to assess for Vasospasm Commence anticoagulation - does not need to be heparin infusion - Start ASA and Lovenox Q2 hour Neuro Obs Telemetry monitoring Jahaira Abreu N.P. October 10, 2018 19:30
--- NOTE | 2018-10-10 19:37 | NUR ---
NURSE NOTES: Report received from JENNIFER Scanlon. Pt is sitting at bedside and is in stable condition. Bed in the lowest position, bed brakes engaged, side rails up x 3 and call light within reach. Will continue to monitor.
[2018-10-10 20:00] VITALS: BP 142/72
--- NOTE | 2018-10-10 20:15 | History and Physical Report ---
DATE OF ADMISSION: 10/09/2018 CONSULTANTS: 1. Keagan Cosby M.D. 2. Rony Mathis M.D. CHIEF COMPLAINT: Headache and status post CVA two months ago. BRIEF HISTORY: This is a 53-year-old female, who was diagnosed with CVA two months ago apparently yesterday started having severe headache, came to [facility], diagnosed with the above, admitted to telemetry for further care. Currently, calm, uses walker in room, slight headache, but much improved from yesterday. No dizziness. No loss of consciousness. REVIEW OF SYSTEMS: Unavailable. PAST MEDICAL HISTORY: Include hypertension and diabetes. PAST SURGICAL HISTORY: None. MEDICATIONS: Include atorvastatin, topiramate, Zanaflex, magnesium, Tylenol, morphine, dextrose, and ceftriaxone. ALLERGIES: Denies. SOCIAL HISTORY: No smoking. No alcohol. No intravenous drug abuse. FAMILY HISTORY: Noncontributory. PHYSICAL EXAMINATION: GENERAL: Calm in bed, oriented x2, in no acute distress. VITAL SIGNS: Temperature is 98 degrees, pulse 76, respirations 22, and blood pressure 103/59. CARDIOVASCULAR: No murmurs. LUNGS: Distant and clear. ABDOMEN: Bowel sounds positive. Nontender. Nondistended. EXTREMITIES: Show no cyanosis, clubbing, or edema. NEUROLOGIC: The patient moves all extremities, but lower extremity weakness noted. LABORATORY AND DIAGNOSTIC DATA: Hemoglobin and hematocrit are 11 and 34. BMP shows chloride 108, otherwise BMP is normal. Troponin is 0.00. AST 61, ALT 206, and alkaline phosphatase 159. Urinalysis showed 3+ leukocyte esterase. ASSESSMENT: 1. Headache. 2. Status post CVA. 3. Hypertension. 4. Diabetes. 5. Anemia. 6. Urinary tract infection. PLAN: 1. Antibiotic per Infectious Disease. 2. Neurology followup. 3. PT and dietary evaluation. 4. Check laboratories in the a.m. 5. We will continue to follow the patient. 6. Blood pressure and blood sugar control. Duglas Landis D.O. DR: SHAMEKA JOB#: [id number] CC:
[2018-10-10] MEDS ORDERED: Topiramate 25mg tab ORAL SCH (21:00)
[2018-10-10] MEDS ORDERED: Atorvastatin 20mg tab ORAL SCH (21:00)
[2018-10-10] MEDS: Heparin 5000 units/ml inj SUBQ SCH (21:06)
[2018-10-10] MEDS ORDERED: cefTRIAXone 1 GM in D5W 55 ML IVPB SCH (22:00)
[2018-10-11] VITALS (7 sets, daily range): BP systolic 88–140; BP diastolic 56–67
--- NOTE | 2018-10-11 | NUR ---
NURSE NOTES: Pt B/P 88/56. Dr. Landis made aware. Pt put on Trendelenburg and oxygen given.
--- NOTE | 2018-10-11 01:45 | NUR ---
NURSE NOTES: Pt B/P is now 114/67.
[2018-10-11] MEDS: Morphine Sulfate 2mg/ml Inj(IV/IM USE ONLY) IVP PRN ×2 (01:49→18:37)
[2018-10-11] MEDS: NIMODIPINE 30 MG ORAL SCH ×3 (05:58→22:18)
--- NOTE | 2018-10-11 07:15 | NUR ---
HAND-OFF: Report given to JENNIFER Sharpe.
[2018-10-11 07:19] LABS: BASOPHILS % (AUTO) 1.4 % (0.0-2.0); EOSINOPHILS % (AUTO) 3.7 % (0.0-3.0); HEMOGLOBIN 11.8 G/DL (12.0-16.0); LYMPHOCYTES % (AUTO) 50.6 % (20.0-45.0); MEAN CORPUSCULAR VOLUME 95 FL (80-99); MONOCYTES % (AUTO) 7.4 % (1.0-10.0); NEUTROPHILS % (AUTO) 36.8 % (45.0-75.0); PLATELET COUNT 210 K/UL (150-450); RED BLOOD COUNT 3.68 M/UL (4.20-5.40); RED CELL DISTRIBUTION WIDTH 12.3 % (11.6-14.8); WHITE BLOOD COUNT 4.2 K/UL (4.8-10.8)
[2018-10-11 07:20] LABS: ANION GAP 8 mmol/L (5-15); BLOOD UREA NITROGEN 13 mg/dL (7-18); CALCIUM 9.4 MG/DL (8.5-10.1); CARBON DIOXIDE 27 MMOL/L (21-32); CHLORIDE 109 MMOL/L (98-107); CREATININE 0.5 MG/DL (0.55-1.30); POTASSIUM 3.7 MMOL/L (3.5-5.1); SODIUM 144 MMOL/L (136-145)
--- NOTE | 2018-10-11 07:21 | NUR ---
NURSE NOTES: Received bedside report from Isis RODRIGUEZ. Pt. in bed, awake, a/o x 4. No sign of distress. C/O generalized mild pain. IV site at left hand #20g. in placed patent/intact running D5 1/2 NS @60cc/hr. tolerating well. NPO observed due to US abdomen and MRI brain this a.m. Bed in low position, locked. Call light within reach. Will cont. to monitor.
[2018-10-11 07:33] LABS: ALANINE AMINOTRANSFERASE 140 U/L (12-78); ALBUMIN 3.5 G/DL (3.4-5.0); ALKALINE PHOSPHATASE 139 U/L (46-116); ASPARTATE AMINO TRANSFERASE 34 U/L (15-37); BILIRUBIN,DIRECT < 0.1 MG/DL (0.0-0.3); BILIRUBIN,TOTAL 0.6 MG/DL (0.2-1.0)
--- NOTE | 2018-10-11 08:30 | NUR ---
NURSE NOTES: Pt. off the unit for MRI. Pt. stable.
[2018-10-11] MEDS: Magnesium Oxide 400mg tab ORAL SCH ×2 (08:49→18:00)
[2018-10-11] MEDS: Heparin 5000 units/ml inj SUBQ SCH ×2 (08:49→21:00)
--- NOTE | 2018-10-11 09:06 | NUR ---
MRI BRAIN COMPLETED.
--- NOTE | 2018-10-11 09:31 | Diagnostic Imaging Report ---
Indication: 53-year-old female acute CVA. Severe headache Technique: The head was imaged in a 1.5 Denise magnet. Sequences obtained include sagittal and axial T1 FLAIR, axial T2 fast spin echo with fat saturation, axial T2 FLAIR, diffusion and ADC map. Comparison: None There is a 1.8 x 1.1 cm focus of diffusion restriction within the high right parietal lobe just right of the interhemispheric fissure. This is associated with a mild amount of T2 hyperintense edema with no mass effect. There is no hemorrhage. No susceptibility identified with this. Second tiny acute right occipital infarct with a 1.4 cm diffusion restriction focus demonstrated. The contour, size and configuration of the sulci, ventricles and basal cisterns appear normal. There is no midline shift. There are no abnormal extra-axial collections. There is no evidence of acute intracranial hemorrhage. Osseous structures appear normal. Empty sella noted. Corpus callosum appears normal. There is abnormal low T1 signal incidentally noted within the dens. This is not evaluated well on the current exam. IMPRESSION: 2 small areas of diffusion restriction an acute CVA in the right high parietal lobe and occipital region. Minimal edema. No mass effect. No evidence of acute hemorrhage. Abnormal dens. This is not adequately evaluated on the current exam. Consider correlation with plain film or CT. Critical value communication at 9:20AM, 10/11/2018. Findings were conveyed via text message to Dr. Duglas Landis. Findings discussed via telephone with the patient's nurse on 2 E. as well. .
--- NOTE | 2018-10-11 09:40 | NUR ---
NURSE NOTES: Called Dr. Landis regarding MRI Brain no contrast result and left a message. Per Dr. Iván Durand he called Dr. Landis also regarding this result.
--- NOTE | 2018-10-11 09:50 | NUR ---
CASE MANAGEMENT:REVIEW 10/11/18 SI: ACUTE CVA (RT PARIETAL AND OCCIPITAL) 97.8 60 18 110/59 98% ON RA H/H-11.8/35.0 IS: IV ROCEPHIN Q24 IVF@60/HR TOPAMAX PO QHS HEPARIN SQ Q12 MAG OX PO BID : TELEMETRY STATUS DCP: FROM HOME
--- NOTE | 2018-10-11 10:55 | Infectious Diseases Prog Note ---
Assessment/Plan Assessment/Plan Abx: Ceftriaxone x1 10/09 Assessment: Headache, N/v- doubt meningitis (afebrile)- - Acute CVA per MRI -Brain MRI: 2 small areas of diffusion restriction an acute CVA in the right high parietal lobe and occipital region. Minimal edema. No mass effect. No evidence of acute hemorrhage. Abnormal dens. This is not adequately evaluated on the current exam. Consider correlation with plain film or CT. -CT head: No acute intracranial bleed, mass effect or edema. Mild atrophy of the brain. Nonspecific white matter hypoattenuation probably due to chronic small vessel disease. Afebrile No leukocytosis -CXR: No acute findings Dysuria- probable UTI -u/a wbc 25-30, nit neg, leuk +3, sq cells moderate; ucx MIXED GRAM POSITIVE ORGANISM (poor urine culture collection as moderate sq cells) COLONY COUNT: 10,000 - 20,000 CFU/ML Elevated LFts; improving- r/o hepatobiliary disease -hep panel p -HIV ab sc neg -Abd US p chronic headaches recent CVA w/ L side weakness Plan: -Continue empiric Ceftriaxone #3 pending repeat urinalysis and culture -f/u cx -Monitor CBC/CMP, temperatures -f/u hep serologies am -f/u Abd US -Neuro f/u -f/u repeat u/a and ucx Thank you for this consultation. Will continue to follow along with you. Discussed with RN. Subjective Allergies: Coded Allergies: No Known Allergies (Unverified , 10/09/18) Subjective afebrile no leukocytosis Objective Vital Signs Last 24 Hour Vital Signs Date Time Temp Pulse Resp B/P (MAP) Pulse Ox O2 Delivery O2 Flow Rate FiO2 10/11/18 09:00 Room Air 10/11/18 08:00 97.8 60 18 110/59 (76) 98 10/11/18 07:48 71 10/11/18 04:00 75 10/11/18 04:00 97.5 70 20 113/62 (79) 96 10/11/18 02:19 97.9 10/11/18 01:45 114/67 (83) 10/11/18 00:00 58 10/11/18 00:00 97.9 55 20 88/56 (67) 97 10/10/18 22:02 97.9 10/10/18 21:00 Room Air 10/10/18 20:00 75 10/10/18 20:00 98.6 65 20 142/72 (95) 98 10/10/18 16:00 97.9 64 20 120/63 (82) 97 10/10/18 16:00 69 10/10/18 12:00 97.6 67 20 114/67 (83) 97 10/10/18 12:00 77 Height (Feet): 5 Height (Inches): 3.00 Weight (Pounds): 160 Objective Gen: no distress HEENT: PERRL, no oral lesions Neck; supple Lungs: CTA x1 Abd: BS+, S+D, NT, ND Extre: no rash Microbiology Date/Time Source Procedure Growth Status 10/09/18 21:27 Urine,Clean Catch Urine Culture - Preliminary Mixed Gram Positive Organism Resulted Laboratory Tests Test 10/11/18 06:26 White Blood Count 4.2 K/UL (4.8-10.8) L Red Blood Count 3.68 M/UL (4.20-5.40) L Hemoglobin 11.8 G/DL (12.0-16.0) L Hematocrit 35.0 % (37.0-47.0) L Mean Corpuscular Volume 95 FL (80-99) Mean Corpuscular Hemoglobin 32.1 PG (27.0-31.0) H Mean Corpuscular Hemoglobin Concent 33.7 G/DL (32.0-36.0) Red Cell Distribution Width 12.3 % (11.6-14.8) Platelet Count 210 K/UL (150-450) Mean Platelet Volume 8.3 FL (6.5-10.1) Neutrophils (%) (Auto) 36.8 % (45.0-75.0) L Lymphocytes (%) (Auto) 50.6 % (20.0-45.0) H Monocytes (%) (Auto) 7.4 % (1.0-10.0) Eosinophils (%) (Auto) 3.7 % (0.0-3.0) H Basophils (%) (Auto) 1.4 % (0.0-2.0) Sodium Level 144 MMOL/L (136-145) Potassium Level 3.7 MMOL/L (3.5-5.1) Chloride Level 109 MMOL/L (98-107) H Carbon Dioxide Level 27 MMOL/L (21-32) Anion Gap 8 mmol/L (5-15) Blood Urea Nitrogen 13 mg/dL (7-18) Creatinine 0.5 MG/DL (0.55-1.30) L Estimat Glomerular Filtration Rate > 60 mL/min (>60) Glucose Level 92 MG/DL (74-106) Calcium Level 9.4 MG/DL (8.5-10.1) Total Bilirubin 0.6 MG/DL (0.2-1.0) Direct Bilirubin < 0.1 MG/DL (0.0-0.3) Aspartate Amino Transf (AST/SGOT) 34 U/L (15-37) Alanine Aminotransferase (ALT/SGPT) 140 U/L (12-78) H Alkaline Phosphatase 139 U/L (46-116) H Total Protein 6.8 G/DL (6.4-8.2) Albumin 3.5 G/DL (3.4-5.0) Hepatitis A IgM Antibody Pending Hepatitis B Surface Antigen Pending Hepatitis B Core IgM Antibody Pending Hepatitis C Antibody Pending HIV (1&2) Antibody Rapid Negative (NEGATIVE) Current Medications Medications (Trade) Dose Ordered Sig/Radha Route PRN Reason Start Time Stop Time Status Last Admin Dose Admin Acetaminophen (Tylenol) 650 mg Q6H PRN ORAL PAIN 1-5 10/10/18 07:15 11/09/18 02:14 Atorvastatin Calcium (Lipitor) 20 mg BEDTIME ORAL 10/10/18 21:00 11/09/18 20:59 10/10/18 21:02 Ceftriaxone Sodium 1 gm/ Dextrose 55 ml @ 110 mls/hr Q24H IVPB 10/10/18 22:00 10/17/18 21:59 10/10/18 21:04 Dextrose/Sodium Chloride 1,000 ml @ 60 mls/hr [id number] IV 10/10/18 02:30 11/09/18 02:29 10/10/18 18:22 Heparin Sodium (Porcine) (Heparin 5000 units/ml) 5,000 units EVERY 12 HOURS SUBQ 10/10/18 21:00 11/09/18 20:59 10/10/18 21:06 Magnesium Oxide (Mag-Ox 400mg) 400 mg BID ORAL 10/10/18 09:00 11/09/18 08:59 10/10/18 17:19 Morphine Sulfate (Morphine Sulfate) 2 mg Q4H PRN IVP Severe Pain (Pain Scale 7-10) 10/10/18 06:15 10/17/18 02:14 10/11/18 01:49 Patient Own Medication (Patient's Own Med) 1 ea Q8HR ORAL 10/10/18 14:00 11/09/18 13:59 10/10/18 21:01 Tizanidine HCl (Zanaflex) 4 mg QHS ORAL 10/10/18 21:00 11/09/18 20:59 10/10/18 21:03 Topiramate (Topamax) 50 mg QHS ORAL 10/10/18 21:00 11/09/18 20:59 10/10/18 21:02 Mary Kate Sales M.D. October 11, 2018 10:55
--- NOTE | 2018-10-11 11:05 | NUR ---
NURSE NOTES: Per Dr. Landis need to inform Dr. Delfina Uribe. Called and left message to Dr. Mathis . Awaiting for response.
--- NOTE | 2018-10-11 11:40 | Diagnostic Imaging Report ---
Indication:Abdominal pain Technique: Grayscale and duplex Doppler imaging of the abdomen performed. Comparison: None Findings: The liver is unremarkable. The gallbladder is unremarkable. The pancreas and aorta are poorly seen due to bowel gas. Both kidneys appear unremarkable. The spleen is normal in size. There is no biliary ductal dilatation identified. Doppler evaluation of the main portal vein shows patency. There is no ascites. No hydronephrosis seen. Impression: No acute findings.
--- NOTE | 2018-10-11 12:10 | Pulmonology Progress Note ---
Assessment/Plan Problems: (1) Acute CVA (cerebrovascular accident) (2) Head ache (3) UTI (urinary tract infection) Assessment/Plan echo and doppler of carotid artery for risk stratification check urine cultures check liver enzymes. Subjective Interval Events: still c/o headache Allergies: Coded Allergies: No Known Allergies (Unverified , 10/09/18) Objective Last 24 Hour Vital Signs Date Time Temp Pulse Resp B/P (MAP) Pulse Ox O2 Delivery O2 Flow Rate FiO2 10/11/18 12:00 97.6 60 18 140/59 (86) 99 10/11/18 09:00 Room Air 10/11/18 08:00 97.8 60 18 110/59 (76) 98 10/11/18 07:48 71 10/11/18 04:00 75 10/11/18 04:00 97.5 70 20 113/62 (79) 96 10/11/18 02:19 97.9 10/11/18 01:45 114/67 (83) 10/11/18 00:00 58 10/11/18 00:00 97.9 55 20 88/56 (67) 97 10/10/18 22:02 97.9 10/10/18 21:00 Room Air 10/10/18 20:00 75 10/10/18 20:00 98.6 65 20 142/72 (95) 98 10/10/18 16:00 97.9 64 20 120/63 (82) 97 10/10/18 16:00 69 Intake and Output 10/10/18 10/11/18 19:00 07:00 Intake Total 1690 ml Output Total 1700 ml Balance -10 ml Intake Oral 1150 ml IV Total 540 ml Output Urine Total 1700 ml # Voids 3 3 General Appearance: WD/WN HEENT: normocephalic, atraumatic Respiratory/Chest: chest wall non-tender, lungs clear Breasts: no masses Cardiovascular: normal rate, no gallop/murmur Abdomen: soft, non tender, no scars Genitourinary: normal external genitalia Extremities: no clubbing Skin: no rash Microbiology Date/Time Source Procedure Growth Status 10/09/18 21:27 Urine,Clean Catch Urine Culture - Preliminary Mixed Gram Positive Organism Resulted Laboratory Tests 10/11/18 06:26: White Blood Count 4.2L, Red Blood Count 3.68L, Hemoglobin 11.8L, Hematocrit 35.0L, Mean Corpuscular Volume 95, Mean Corpuscular Hemoglobin 32.1H, Mean Corpuscular Hemoglobin Concent 33.7, Red Cell Distribution Width 12.3, Platelet Count 210, Mean Platelet Volume 8.3, Neutrophils (%) (Auto) 36.8L, Lymphocytes ( %) (Auto) 50.6H, Monocytes (%) (Auto) 7.4, Eosinophils (%) (Auto) 3.7H, Basophils (%) (Auto) 1.4, Sodium Level 144, Potassium Level 3.7, Chloride Level 109H, Carbon Dioxide Level 27, Anion Gap 8, Blood Urea Nitrogen 13, Creatinine 0.5L, Estimat Glomerular Filtration Rate > 60, Glucose Level 92, Calcium Level 9.4, Total Bilirubin 0.6, Direct Bilirubin < 0.1, Aspartate Amino Transf (AST/ SGOT) 34, Alanine Aminotransferase (ALT/SGPT) 140H, Alkaline Phosphatase 139H, Total Protein 6.8, Albumin 3.5, Hepatitis A IgM Antibody [Pending], Hepatitis B Surface Antigen [Pending], Hepatitis B Core IgM Antibody [Pending], Hepatitis C Antibody [Pending], HIV (1&2) Antibody Rapid Negative Current Medications Medications (Trade) Dose Ordered Sig/Radha Route PRN Reason Start Time Stop Time Status Last Admin Dose Admin Acetaminophen (Tylenol) 650 mg Q6H PRN ORAL PAIN 1-5 10/10/18 07:15 11/09/18 02:14 10/11/18 11:43 Atorvastatin Calcium (Lipitor) 20 mg BEDTIME ORAL 10/10/18 21:00 11/09/18 20:59 10/10/18 21:02 Ceftriaxone Sodium 1 gm/ Dextrose 55 ml @ 110 mls/hr Q24H IVPB 10/10/18 22:00 10/17/18 21:59 10/10/18 21:04 Dextrose/Sodium Chloride 1,000 ml @ 60 mls/hr [id number] IV 10/10/18 02:30 11/09/18 02:29 10/10/18 18:22 Heparin Sodium (Porcine) (Heparin 5000 units/ml) 5,000 units EVERY 12 HOURS SUBQ 10/10/18 21:00 11/09/18 20:59 10/10/18 21:06 Magnesium Oxide (Mag-Ox 400mg) 400 mg BID ORAL 10/10/18 09:00 11/09/18 08:59 10/10/18 17:19 Morphine Sulfate (Morphine Sulfate) 2 mg Q4H PRN IVP Severe Pain (Pain Scale 7-10) 10/10/18 06:15 10/17/18 02:14 10/11/18 01:49 Patient Own Medication (Patient's Own Med) 1 ea Q8HR ORAL 10/10/18 14:00 11/09/18 13:59 10/10/18 21:01 Tizanidine HCl (Zanaflex) 4 mg QHS ORAL 10/10/18 21:00 11/09/18 20:59 10/10/18 21:03 Topiramate (Topamax) 50 mg QHS ORAL 10/10/18 21:00 11/09/18 20:59 10/10/18 21:02 Keagan Cosby MD October 11, 2018 12:10
[2018-10-11] MEDS ORDERED: Isovue-370 150ml vial INJ PRN (13:15)
[2018-10-11] MEDS: D5 1/2NS 1,000 ML IV SCH ×2 (13:22→18:20)
--- NOTE | 2018-10-11 13:51 | Neurology Progress Note ---
Interim History Interim History ROS Limited/Unobtainable: No Complaints: Weakness Events: Acute CVA on MRI seen Interim History Need to assess for cerebral vasospasm Review of Systems All Systems: reviewed and negative except above Objective Physical Exam Last Vital Signs Date Time Temp Pulse Resp B/P (MAP) Pulse Ox O2 Delivery O2 Flow Rate FiO2 10/11/18 12:00 97.6 60 18 140/59 (86) 99 10/11/18 09:00 Room Air Laboratory Tests Test 10/11/18 06:26 White Blood Count 4.2 K/UL (4.8-10.8) L Red Blood Count 3.68 M/UL (4.20-5.40) L Hemoglobin 11.8 G/DL (12.0-16.0) L Hematocrit 35.0 % (37.0-47.0) L Mean Corpuscular Volume 95 FL (80-99) Mean Corpuscular Hemoglobin 32.1 PG (27.0-31.0) H Mean Corpuscular Hemoglobin Concent 33.7 G/DL (32.0-36.0) Red Cell Distribution Width 12.3 % (11.6-14.8) Platelet Count 210 K/UL (150-450) Mean Platelet Volume 8.3 FL (6.5-10.1) Neutrophils (%) (Auto) 36.8 % (45.0-75.0) L Lymphocytes (%) (Auto) 50.6 % (20.0-45.0) H Monocytes (%) (Auto) 7.4 % (1.0-10.0) Eosinophils (%) (Auto) 3.7 % (0.0-3.0) H Basophils (%) (Auto) 1.4 % (0.0-2.0) Sodium Level 144 MMOL/L (136-145) Potassium Level 3.7 MMOL/L (3.5-5.1) Chloride Level 109 MMOL/L (98-107) H Carbon Dioxide Level 27 MMOL/L (21-32) Anion Gap 8 mmol/L (5-15) Blood Urea Nitrogen 13 mg/dL (7-18) Creatinine 0.5 MG/DL (0.55-1.30) L Estimat Glomerular Filtration Rate > 60 mL/min (>60) Glucose Level 92 MG/DL (74-106) Calcium Level 9.4 MG/DL (8.5-10.1) Total Bilirubin 0.6 MG/DL (0.2-1.0) Direct Bilirubin < 0.1 MG/DL (0.0-0.3) Aspartate Amino Transf (AST/SGOT) 34 U/L (15-37) Alanine Aminotransferase (ALT/SGPT) 140 U/L (12-78) H Alkaline Phosphatase 139 U/L (46-116) H Total Protein 6.8 G/DL (6.4-8.2) Albumin 3.5 G/DL (3.4-5.0) Hepatitis A IgM Antibody Pending Hepatitis B Surface Antigen Pending Hepatitis B Core IgM Antibody Pending Hepatitis C Antibody Pending HIV (1&2) Antibody Rapid Negative (NEGATIVE) General: well developed, well nourished Head: normocophalic Neck: no rigidity EENT: benign Neurologic Exam Mental Status: awake, alert, oriented x4, normal cognition, good mathematical skills, normal recent memory, normal remote memory, preserved visuospatial function Speech: other - mild dysarthria Language: normal language Cranial Nerve II: fundus normal, visual landeros, no papilledema Cranial Nerves III, IV, : PERRLA, EOMI, pupils Cranial Nerve VIII: normal hearing Cranial Nerve IX: normal palate elevation Cranial Nerve X: no voice hoarseness Cranial Nerve XI: SCM symmetric Cranial Nerve XII: tongue midline Motor System: other - Left 3/5 weakness in arm and leg- reports that this waxes and wanes in severity Sensory: normal pinprick, normal light touch Coordination: normal finger to nose bilaterally Impression/Recommendations Problems: (1) Hemiparesis (2) UTI (urinary tract infection) (3) Status post stroke Assessment & Plan: Has been on Nimodopine and reports that she was told she has "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 (4) Head ache (5) Acute CVA (cerebrovascular accident) Assessment & Plan: Will order CTA to assess for cerebral vasospasm Status: stable Recommendations Q2 Hour Neuro Monitoring Na 135-145 Get STAT CTA to assess for cerebral vasospasm Continue home nimodipine 30mg - consider dosage increase if spasm is present on scan Telemetry monitoring Maintain SBP<180 - may allow permissive hypertension if Cerebral vasospasm is present Check Lipids Carotid Doppler ECHO HgBA1c Start ASA 81mg Jahaira Abreu N.P. October 11, 2018 13:51
[2018-10-11] MEDS ORDERED: Aspirin EC 81mg tab ORAL SCH (14:00)
--- NOTE | 2018-10-11 14:19 | Cardiology Report ---
APPROVED REPORT EXAM: Two-dimensional and M-mode echocardiogram with Doppler and color Doppler. INDICATION CVA M-Mode DIMENSIONS IVSd0.8 (0.7-1.1cm)Left Atrium (MM)3.5 (1.6-4.0cm) LVDd4.2 (3.5-5.6cm)Aortic Root3.3 (2.0-3.7cm) PWd1.0 (0.7-1.1cm)Aortic Cusp Exc.1.8 (1.5-2.0cm) IVSs0.9 cm LVDs2.8 (2.5-4.0cm) PWs1.4 cm Normal left ventricular chamber size, systolic function and wall motion . Left ventricular ejection fraction estimated to be 55-60%. No evidence of left ventricular hypertrophy . No evidence of pericardial effusion. All other cardiac chamber sizes are within normal limits. Aortic valve calcification with normal cusp excursion . Mildly thickened mitral valve leaflets with normal excursion. Mild mitral annulus and aortic root calcification. Pulmonic valve not well visualized. IVC at normal size with physiologic collapse A color flow and spectral Doppler study was performed and revealed: Trace aortic insufficiency . Mitral diastolic velocities suggest reduced left ventricular relaxation c/w mild LV diastolic dysfunction (Grade I ) Trace mitral regurgitation. Trace tricuspid regurgitation. Tricuspid systolic velocities suggests peak right ventricular systolic pressure of 12mmHg .
[2018-10-11 14:57] LABS: CHOLESTEROL 171 MG/DL (< 200); HDL CHOLESTEROL 52 MG/DL (40-60); TRIGLYCERIDES 116 MG/DL (30-150)
--- NOTE | 2018-10-11 15:07 | General Progress Note ---
Assessment/Plan Problem List: (1) UTI (urinary tract infection) ICD Codes: N39.0 - Urinary tract infection, site not specified SNOMED: 45597403 Qualifiers: Qualified Codes: N30.00 - Acute cystitis without hematuria (2) Status post stroke ICD Codes: Z86.73 - Personal history of transient ischemic attack (TIA), and cerebral infarction without residual deficits SNOMED: 372813900 (3) Acute CVA (cerebrovascular accident) ICD Codes: I63.9 - Cerebral infarction, unspecified SNOMED: 178871050, 965750172 (4) Head ache ICD Codes: R51 - Headache SNOMED: 55683411 Qualifiers: Qualified Codes: G44.89 - Other headache syndrome (5) Hemiparesis ICD Codes: G81.90 - Hemiplegia, unspecified affecting unspecified side SNOMED: 89242359 Status: unchanged Assessment/Plan: ot pt diet abx cbc bmp am aru eval Subjective Constitutional: Reports: weakness Allergies: Coded Allergies: No Known Allergies (Unverified , 10/09/18) All Systems: reviewed and negative except above Subjective sl head ache and nausea Objective Last 24 Hour Vital Signs Date Time Temp Pulse Resp B/P (MAP) Pulse Ox O2 Delivery O2 Flow Rate FiO2 10/11/18 12:00 97.6 60 18 140/59 (86) 99 10/11/18 11:46 58 10/11/18 09:00 Room Air 10/11/18 08:00 97.8 60 18 110/59 (76) 98 10/11/18 07:48 71 10/11/18 04:00 75 10/11/18 04:00 97.5 70 20 113/62 (79) 96 10/11/18 02:19 97.9 10/11/18 01:45 114/67 (83) 10/11/18 00:00 58 10/11/18 00:00 97.9 55 20 88/56 (67) 97 10/10/18 22:02 97.9 10/10/18 21:00 Room Air 10/10/18 20:00 75 10/10/18 20:00 98.6 65 20 142/72 (95) 98 10/10/18 16:00 97.9 64 20 120/63 (82) 97 10/10/18 16:00 69 Intake and Output 10/10/18 10/11/18 19:00 07:00 Intake Total 1690 ml Output Total 1700 ml Balance -10 ml Intake Oral 1150 ml IV Total 540 ml Output Urine Total 1700 ml # Voids 3 3 Laboratory Tests 10/11/18 06:26: White Blood Count 4.2L, Red Blood Count 3.68L, Hemoglobin 11.8L, Hematocrit 35.0L, Mean Corpuscular Volume 95, Mean Corpuscular Hemoglobin 32.1H, Mean Corpuscular Hemoglobin Concent 33.7, Red Cell Distribution Width 12.3, Platelet Count 210, Mean Platelet Volume 8.3, Neutrophils (%) (Auto) 36.8L, Lymphocytes ( %) (Auto) 50.6H, Monocytes (%) (Auto) 7.4, Eosinophils (%) (Auto) 3.7H, Basophils (%) (Auto) 1.4, Sodium Level 144, Potassium Level 3.7, Chloride Level 109H, Carbon Dioxide Level 27, Anion Gap 8, Blood Urea Nitrogen 13, Creatinine 0.5L, Estimat Glomerular Filtration Rate > 60, Glucose Level 92, Calcium Level 9.4, Total Bilirubin 0.6, Direct Bilirubin < 0.1, Aspartate Amino Transf (AST/ SGOT) 34, Alanine Aminotransferase (ALT/SGPT) 140H, Alkaline Phosphatase 139H, Total Protein 6.8, Albumin 3.5, Hepatitis A IgM Antibody [Pending], Hepatitis B Surface Antigen [Pending], Hepatitis B Core IgM Antibody [Pending], Hepatitis C Antibody [Pending], HIV (1&2) Antibody Rapid Negative 10/11/18 06:38: Hemoglobin A1c 5.6, Triglycerides Level 116, Cholesterol Level 171, LDL Cholesterol 101H, HDL Cholesterol 52, Cholesterol/HDL Ratio 3.3 Height (Feet): 5 Height (Inches): 3.00 Weight (Pounds): 160 General Appearance: lethargic EENT: normal ENT inspection Neck: normal alignment Cardiovascular: normal peripheral pulses, normal rate, regular rhythm Respiratory/Chest: chest wall non-tender, lungs clear, normal breath sounds Abdomen: normal bowel sounds, non tender, soft Extremities: normal inspection Edema: no edema noted Arm (L), no edema noted Arm (R), no edema noted Leg (L), no edema noted Leg (R), no edema noted Pedal (L), no edema noted Pedal (R), no edema noted Generalized Neurologic: responsive, motor weakness Skin: normal pigmentation, warm/dry Duglas Landis DO October 11, 2018 15:06
--- NOTE | 2018-10-11 17:50 | NUR ---
NURSE NOTES: Received pt from (JENNIFER Hernandez Tele) with stable condition. pt is a/ox4 Breathing regular and unlabored. denies any pain at this time. all belongings checked. Iv intact and patent. Bed in lowest position. call light within reach at all time. will continue to monitor
--- NOTE | 2018-10-11 17:50 | NUR ---
NURSE NOTES: Gave report to Racheal RODRIGUEZ. Pt. remain stable.
--- NOTE | 2018-10-11 19:15 | NUR ---
HAND-OFF: Report given to JENNIFER Meadows.
--- NOTE | 2018-10-11 19:40 | NUR ---
NURSE NOTES: Received report from JENNIFER Springer. Patient A&Ox4. On room air, no signs of distress or labored breathing. IV intact, patent, and infusing IV fluids. Complains of pain. Will follow pain management per MD. Bed in lowest position with call light in reach. Will continue with plan of care.
[2018-10-11] MEDS ORDERED: Atorvastatin 20mg tab ORAL SCH (21:00)
[2018-10-11] MEDS ORDERED: Topiramate 25mg tab ORAL SCH (21:00)
[2018-10-11] MEDS ORDERED: cefTRIAXone 1 GM in D5W 55 ML IVPB SCH (22:00)
[2018-10-12] VITALS: BP 99/57
--- NOTE | 2018-10-12 02:52 | Neurology Progress Note ---
Interim History Interim History ROS Limited/Unobtainable: No Complaints: Weakness Events: CTA Head Negative for Vasospasm Interim History Improving left side strength and some reduction in headache. Objective Physical Exam Last Vital Signs Date Time Temp Pulse Resp B/P (MAP) Pulse Ox O2 Delivery O2 Flow Rate FiO2 10/12/18 00:00 98.0 61 20 99/57 (71) 99 10/11/18 21:00 Room Air Laboratory Tests Test 10/11/18 06:26 10/11/18 06:38 White Blood Count 4.2 K/UL (4.8-10.8) L Red Blood Count 3.68 M/UL (4.20-5.40) L Hemoglobin 11.8 G/DL (12.0-16.0) L Hematocrit 35.0 % (37.0-47.0) L Mean Corpuscular Volume 95 FL (80-99) Mean Corpuscular Hemoglobin 32.1 PG (27.0-31.0) H Mean Corpuscular Hemoglobin Concent 33.7 G/DL (32.0-36.0) Red Cell Distribution Width 12.3 % (11.6-14.8) Platelet Count 210 K/UL (150-450) Mean Platelet Volume 8.3 FL (6.5-10.1) Neutrophils (%) (Auto) 36.8 % (45.0-75.0) L Lymphocytes (%) (Auto) 50.6 % (20.0-45.0) H Monocytes (%) (Auto) 7.4 % (1.0-10.0) Eosinophils (%) (Auto) 3.7 % (0.0-3.0) H Basophils (%) (Auto) 1.4 % (0.0-2.0) Sodium Level 144 MMOL/L (136-145) Potassium Level 3.7 MMOL/L (3.5-5.1) Chloride Level 109 MMOL/L (98-107) H Carbon Dioxide Level 27 MMOL/L (21-32) Anion Gap 8 mmol/L (5-15) Blood Urea Nitrogen 13 mg/dL (7-18) Creatinine 0.5 MG/DL (0.55-1.30) L Estimat Glomerular Filtration Rate > 60 mL/min (>60) Glucose Level 92 MG/DL (74-106) Calcium Level 9.4 MG/DL (8.5-10.1) Total Bilirubin 0.6 MG/DL (0.2-1.0) Direct Bilirubin < 0.1 MG/DL (0.0-0.3) Aspartate Amino Transf (AST/SGOT) 34 U/L (15-37) Alanine Aminotransferase (ALT/SGPT) 140 U/L (12-78) H Alkaline Phosphatase 139 U/L (46-116) H Total Protein 6.8 G/DL (6.4-8.2) Albumin 3.5 G/DL (3.4-5.0) Hepatitis A IgM Antibody Pending Hepatitis B Surface Antigen Pending Hepatitis B Core IgM Antibody Pending Hepatitis C Antibody Pending HIV (1&2) Antibody Rapid Negative (NEGATIVE) Hemoglobin A1c 5.6 % (4.3-6.0) Triglycerides Level 116 MG/DL (30-150) Cholesterol Level 171 MG/DL (< 200) LDL Cholesterol 101 mg/dL (<100) H HDL Cholesterol 52 MG/DL (40-60) Cholesterol/HDL Ratio 3.3 (3.3-4.4) General: well developed, well nourished Head: normocophalic Neck: no rigidity EENT: benign Neurologic Exam Mental Status: awake, alert, oriented x4, normal cognition, good mathematical skills, normal recent memory, normal remote memory, preserved visuospatial function Speech: other - mild dysarthria Language: normal language Cranial Nerve II: fundus normal, visual landeros, no papilledema Cranial Nerves III, IV, : PERRLA, EOMI, pupils Cranial Nerve VIII: normal hearing Cranial Nerve IX: normal palate elevation Cranial Nerve X: no voice hoarseness Cranial Nerve XI: SCM symmetric Cranial Nerve XII: tongue midline Motor System: normal muscle tone, no involuntary movement, other - Some improvement of LUE strength to 3-4 / 5 and able to stand on LLE but no improvement in strength. 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 (4) Head ache (5) Acute CVA (cerebrovascular accident) Assessment & Plan: Will order CTA to assess for cerebral vasospasm Status: unchanged Recommendations Q4 Hour Neuro Monitoring Na 135-145 Get STAT CTA was negative for cerebral vasospasm and deficits are improving. Likely redemonstration of recent stroke symptoms secondary to UTI Continue home nimodipine 30mg - Instruct patient to follow up with Neurology 2 weeks following discharge. Maintain SBP<180 - may allow permissive hypertension if Cerebral vasospasm is present All studies normal Continue ASA 81mg Clear for discharge from a neurological perspective Jahaira Abreu N.P. October 12, 2018 02:52
[2018-10-12 04:00] VITALS: BP 124/72
[2018-10-12] MEDS: NIMODIPINE 30 MG ORAL SCH ×2 (06:26→14:06)
[2018-10-12 07:02] LABS: BASOPHILS % (AUTO) 1.4 % (0.0-2.0); EOSINOPHILS % (AUTO) 4.1 % (0.0-3.0); HEMATOCRIT 36.8 % (37.0-47.0); HEMOGLOBIN 12.6 G/DL (12.0-16.0); LYMPHOCYTES % (AUTO) 43.6 % (20.0-45.0); MEAN CORPUSCULAR VOLUME 94 FL (80-99); MONOCYTES % (AUTO) 7.1 % (1.0-10.0); NEUTROPHILS % (AUTO) 43.9 % (45.0-75.0); PLATELET COUNT 213 K/UL (150-450); RED BLOOD COUNT 3.93 M/UL (4.20-5.40); RED CELL DISTRIBUTION WIDTH 12.5 % (11.6-14.8); WHITE BLOOD COUNT 4.1 K/UL (4.8-10.8)
[2018-10-12 07:21] LABS: ANION GAP 10 mmol/L (5-15); BLOOD UREA NITROGEN 15 mg/dL (7-18); CALCIUM 9.7 MG/DL (8.5-10.1); CARBON DIOXIDE 25 MMOL/L (21-32); CHLORIDE 107 MMOL/L (98-107); CREATININE 0.6 MG/DL (0.55-1.30); POTASSIUM 3.7 MMOL/L (3.5-5.1); SODIUM 142 MMOL/L (136-145)
--- NOTE | 2018-10-12 07:46 | NUR ---
HAND-OFF: Report given to Darling RUIZ RN.
[2018-10-12 08:00] VITALS: BP 121/72
--- NOTE | 2018-10-12 08:00 | NUR ---
NURSE NOTES: Received patient in bed, awake, alert and oriented x4. Patient is ambulatory with FWW with supervision. Denies facial droop, sudden weakness, change of LOC, but complains of mild headache that she has been having. Patient's speech is clear. Will do pain management. Patient's IV on left hand leaking and RN inserted a new IV on right wrist with G 22. Removed IV on left hand, no s/s of infection or swollen on IV removal site. Bed is in lowest position and locked. Call light within reach. Reminded patient to call nurses if needed. Will continue plan of care.
[2018-10-12] MEDS: Morphine Sulfate 2mg/ml Inj(IV/IM USE ONLY) IVP PRN (08:37)
[2018-10-12] MEDS ORDERED: Aspirin EC 81mg tab ORAL SCH (09:00)
[2018-10-12] MEDS ORDERED: Magnesium Oxide 400mg tab ORAL SCH (09:00)
[2018-10-12] MEDS: Heparin 5000 units/ml inj SUBQ SCH (09:05)
[2018-10-12] MEDS: D5 1/2NS 1,000 ML IV SCH (11:54)
[2018-10-12 12:00] VITALS: BP 113/66
--- NOTE | 2018-10-12 12:00 | NUR ---
NURSE NOTES: Patient is alert and oriented x4. Ambulatory with walker. Will continue to monitor.
[2018-10-12] MEDS ORDERED: NORCO 10-325 T1 EACH ORAL (12:58)
[2018-10-12] MEDS ORDERED: ASPIRIN EC81 MG ORAL (12:58)
[2018-10-12] MEDS ORDERED: ACETAMINOPHEN-1 EAC1 ORAL (12:59)
--- NOTE | 2018-10-12 13:00 | NUR ---
NURSE NOTES: Patient was seen by Dr. Cosby and he put the discharge order. Dr. Cosby spoke to the neurologist and CTA results was followed. Dr. Cosby said patient is clear for discharge. RN made patient aware. She wants to be discharged to home. Patient says her daughter will pick her up.
--- NOTE | 2018-10-12 13:01 | Pulmonology Progress Note ---
Assessment/Plan Problems: (1) Acute CVA (cerebrovascular accident) (2) Head ache (3) UTI (urinary tract infection) Assessment/Plan echo and doppler of carotid artery for risk stratification are done CTA was negative check urine cultures check liver enzymes. Subjective Constitutional: Reports: no symptoms HEENT: Repors: no symptoms Respiratory: Reports: no symptoms Allergies: Coded Allergies: No Known Allergies (Unverified , 10/09/18) Objective Last 24 Hour Vital Signs Date Time Temp Pulse Resp B/P (MAP) Pulse Ox O2 Delivery O2 Flow Rate FiO2 10/12/18 12:00 98.0 70 20 113/66 (82) 97 10/12/18 09:00 Room Air 10/12/18 08:00 98.7 87 20 121/72 (88) 98 10/12/18 04:00 98.0 68 20 124/72 (89) 97 10/12/18 00:00 98.0 61 20 99/57 (71) 99 10/11/18 21:00 Room Air 10/11/18 20:00 98.5 71 20 101/65 (77) 96 10/11/18 19:07 97.8 10/11/18 16:15 68 10/11/18 16:00 97.8 73 18 115/67 (83) 100 Intake and Output 10/11/18 10/12/18 19:00 07:00 Intake Total 1100 ml 715 ml Balance 1100 ml 715 ml Intake Oral 500 ml IV Total 600 ml 715 ml # Voids 3 3 General Appearance: WD/WN HEENT: normocephalic, atraumatic, anicteric Respiratory/Chest: chest wall non-tender, lungs clear Cardiovascular: normal rate Abdomen: soft, non tender, no organomegaly Genitourinary: normal external genitalia Neurologic/Psychiatric: food selector II-XII grossly normal Microbiology Date/Time Source Procedure Growth Status 10/09/18 21:27 Urine,Clean Catch Urine Culture - Final Mixed Gram Positive Organism Complete Laboratory Tests 10/12/18 05:27: White Blood Count 4.1L, Red Blood Count 3.93L, Hemoglobin 12.6, Hematocrit 36.8L , Mean Corpuscular Volume 94, Mean Corpuscular Hemoglobin 32.0H, Mean Corpuscular Hemoglobin Concent 34.2, Red Cell Distribution Width 12.5, Platelet Count 213, Mean Platelet Volume 8.2, Neutrophils (%) (Auto) 43.9L, Lymphocytes ( %) (Auto) 43.6, Monocytes (%) (Auto) 7.1, Eosinophils (%) (Auto) 4.1H, Basophils (%) (Auto) 1.4, Sodium Level 142, Potassium Level 3.7, Chloride Level 107, Carbon Dioxide Level 25, Anion Gap 10, Blood Urea Nitrogen 15, Creatinine 0.6, Estimat Glomerular Filtration Rate > 60, Glucose Level 89, Calcium Level 9.7 Current Medications Medications (Trade) Dose Ordered Sig/Radha Route PRN Reason Start Time Stop Time Status Last Admin Dose Admin Acetaminophen (Tylenol) 650 mg Q6H PRN ORAL PAIN 1-5 10/11/18 18:06 11/10/18 18:05 Aspirin (Ecotrin) 81 mg DAILY ORAL 10/12/18 09:00 11/10/18 13:59 10/12/18 08:59 Atorvastatin Calcium (Lipitor) 20 mg BEDTIME ORAL 10/11/18 21:00 11/09/18 20:59 10/11/18 21:04 Ceftriaxone Sodium 1 gm/ Dextrose 55 ml @ 110 mls/hr Q24H IVPB 10/11/18 22:00 10/17/18 21:59 10/11/18 22:18 Dextrose/Sodium Chloride 1,000 ml @ 60 mls/hr [id number] IV 10/11/18 18:06 11/10/18 18:05 10/12/18 11:54 Heparin Sodium (Porcine) (Heparin 5000 units/ml) 5,000 units EVERY 12 HOURS SUBQ 10/11/18 21:00 11/09/18 20:59 10/12/18 09:05 Iopamidol (Isovue-370 150ml) 150 ml NOW PRN INJ Radiology Procedure 10/12/18 13:15 10/13/18 13:13 Magnesium Oxide (Mag-Ox 400mg) 400 mg BID ORAL 10/12/18 09:00 11/09/18 08:59 10/12/18 09:01 Morphine Sulfate (Morphine Sulfate) 2 mg Q4H PRN IVP Severe Pain (Pain Scale 7-10) 10/11/18 18:07 10/18/18 18:06 10/12/18 08:37 Patient Own Medication (Patient's Own Med) 1 ea Q8HR ORAL 10/11/18 22:00 11/09/18 13:59 10/12/18 06:26 Tizanidine HCl (Zanaflex) 4 mg QHS ORAL 10/11/18 21:00 11/09/18 20:59 10/11/18 21:04 Topiramate (Topamax) 50 mg QHS ORAL 10/11/18 21:00 11/09/18 20:59 10/11/18 21:04 Keagan Cosby MD October 12, 2018 13:01
[2018-10-12] MEDS ORDERED: Isovue-370 150ml vial INJ PRN (13:15)
--- NOTE | 2018-10-12 13:30 | NUR ---
DISCHARGE PLANNING DISCHARGE ORDER NOTED UNABLE TO REFER TO ARU OR SNF DUE TO INSURANCE PATIENT WILL BE RETURNING HOME
[2018-10-12] MEDS ORDERED: D5 1/2NS 1000ml IV ONE (13:32)
--- NOTE | 2018-10-12 13:53 | Diagnostic Imaging Report ---
Indication: Focal weakness. Acute cva Technique: Continuous helical transaxial imaging of the head was obtained during rapid intravenous contrast administration. Arterial phase of enhancement obtained. Coronal 2-D reformats were also obtained and maximum intensity projection images in multiple planes. Study obtained in a Siemens sensation [address] Automatic Exposure Control was utilized. Total Dose length Product (DLP): 3316.[address] Dose Index Volume (CTDIvol): 70.38,54.98,54.98 mGy Comparison: None Findings: The [place] of [place] demonstrated. There is mild calcification in the cavernous internal carotid arteries. There is no evidence of significant stenosis, aneurysm or vascular malformation. Intracranial both portions of the vertebral arteries, the basilar artery appear normal. The anterior circulation with demonstration of anterior and middle cerebral arteries appears normal. There is venous contamination with dural sinus and multiple veins noted. IMPRESSION: No high-grade stenosis identified. Mild atherosclerotic disease
--- NOTE | 2018-10-12 14:42 | General Progress Note ---
Assessment/Plan Problem List: (1) UTI (urinary tract infection) ICD Codes: N39.0 - Urinary tract infection, site not specified SNOMED: 61951106 Qualifiers: Qualified Codes: N30.00 - Acute cystitis without hematuria (2) Status post stroke ICD Codes: Z86.73 - Personal history of transient ischemic attack (TIA), and cerebral infarction without residual deficits SNOMED: 871492464 (3) Acute CVA (cerebrovascular accident) ICD Codes: I63.9 - Cerebral infarction, unspecified SNOMED: 639837229, 642862071 (4) Head ache ICD Codes: R51 - Headache SNOMED: 83666129 Qualifiers: Qualified Codes: G44.89 - Other headache syndrome (5) Hemiparesis ICD Codes: G81.90 - Hemiplegia, unspecified affecting unspecified side SNOMED: 72138370 Status: unchanged Assessment/Plan: ot pt diet abx cbc bmp am aru eval Subjective Constitutional: Reports: weakness Allergies: Coded Allergies: No Known Allergies (Unverified , 10/09/18) All Systems: reviewed and negative except above Subjective sl head ache and nausea Objective Last 24 Hour Vital Signs Date Time Temp Pulse Resp B/P (MAP) Pulse Ox O2 Delivery O2 Flow Rate FiO2 10/12/18 12:00 98.0 70 20 113/66 (82) 97 10/12/18 09:00 Room Air 10/12/18 08:00 98.7 87 20 121/72 (88) 98 10/12/18 04:00 98.0 68 20 124/72 (89) 97 10/12/18 00:00 98.0 61 20 99/57 (71) 99 10/11/18 21:00 Room Air 10/11/18 20:00 98.5 71 20 101/65 (77) 96 10/11/18 19:07 97.8 10/11/18 16:15 68 10/11/18 16:00 97.8 73 18 115/67 (83) 100 Intake and Output 10/11/18 10/12/18 19:00 07:00 Intake Total 1100 ml 715 ml Balance 1100 ml 715 ml Intake Oral 500 ml IV Total 600 ml 715 ml # Voids 3 3 Laboratory Tests 10/12/18 05:27: White Blood Count 4.1L, Red Blood Count 3.93L, Hemoglobin 12.6, Hematocrit 36.8L , Mean Corpuscular Volume 94, Mean Corpuscular Hemoglobin 32.0H, Mean Corpuscular Hemoglobin Concent 34.2, Red Cell Distribution Width 12.5, Platelet Count 213, Mean Platelet Volume 8.2, Neutrophils (%) (Auto) 43.9L, Lymphocytes ( %) (Auto) 43.6, Monocytes (%) (Auto) 7.1, Eosinophils (%) (Auto) 4.1H, Basophils (%) (Auto) 1.4, Sodium Level 142, Potassium Level 3.7, Chloride Level 107, Carbon Dioxide Level 25, Anion Gap 10, Blood Urea Nitrogen 15, Creatinine 0.6, Estimat Glomerular Filtration Rate > 60, Glucose Level 89, Calcium Level 9.7 Height (Feet): 5 Height (Inches): 3.00 Weight (Pounds): 167 General Appearance: lethargic EENT: normal ENT inspection Neck: normal alignment Cardiovascular: normal peripheral pulses, normal rate, regular rhythm Respiratory/Chest: chest wall non-tender, lungs clear, normal breath sounds Abdomen: normal bowel sounds, non tender, soft Extremities: normal inspection Edema: no edema noted Arm (L), no edema noted Arm (R), no edema noted Leg (L), no edema noted Leg (R), no edema noted Pedal (L), no edema noted Pedal (R), no edema noted Generalized Neurologic: responsive, motor weakness Skin: normal pigmentation, warm/dry Duglas Landis DO October 12, 2018 14:42
--- NOTE | 2018-10-12 14:50 | NUR ---
ST NOTE: BEDSIDE SWALLOW EVAL RECEIVED BEDSIDE SWALLOW EVAL ORDER CHART REVIEWED PRIOR THE EVALUATION REFERRED BY Suzy JESUSITA PT IS A 53-YEAR-OLD FEMALE WHO WAS ADMITTED DUE TO HEADACHE. PT HAS RECENT STROKE (2 MONTHS AGO). PER MRI(10/11/18): 1.8X 1.1 CM FOCUS OF DIFFUSION RESTRICTION WITHIN THE HIGH R PARIETAL LOBE JUST R OF THE INTERHEMISPHERIC FISSURE. SECOND TINY ACUTE R OCCIPITAL INFARCT WITH A 1.4 CM DIFFUSION RESTRICTION FOCUS DEMONSTRATED. PLOF: PT LIVES AT HOME. PER PT, AFTER THE FIRST STROKE, PT WAS SENT TO [facility]. PER PT, NEVER SEEN BY ST. CURRENT STATUS: PT SEEN AT BEDSIDE IN LATE AM. ALERT, COOPERATIVE, FOLLOWS DIRECTIONS, WITH [place]ENLANDIC-SPEAKING STUDENT NURSE. PT STATED THAT STILL HAS THE HEADACHE EVEN THE MEDICATION WAS GIVEN. PRIOR THE MEDICATION, IT WAS 8, NOW IT IS 3. (PAIN LEVEL). ORAL MOTOR EXAMINATION: MISSING SOME TEETH MIN TO MILD L-SIDED WEAKNESS, MIN L-SIDED FACIAL WEAKNESS, FUNCTIONAL LINGUAL MOVEMENT, BUT MILDLY REDUCED LINGUAL STRENGTH ON THE L-SIDED. GIVEN PO TRIALS: THIN(CUP-SELF), PUREE(TSP) AND CRACKER. PROBABLE MILD OR WORSENED OROPHARYNGEAL DYSPHAGIA SLOW BUT FUNCTIONAL MASTICATION TIME, MILDLY INCREASED ORAL TRANSIT TIME(4 SECONDS(ANTERIOR TO POSTERIOR), WHEN PT TRIGGERED SWALLOW RESPONSE. LARYNGEAL ELEVATION SEEMS ADEQUATE, HOWEVER, PT STATED THAT HAVE THE SENSATION THE MASTICATED SOLID FOOD IN THE THROAT, BUT ABLE TO CLEAR IT WITH ADDITION SWALLOW. HAS RISK FOR (SILENT) ASPIRATION DUE TO RECENT AND ACUTE CVA. RECOMMENDATIONS: 1. FOR QUALITY OF LIFE, CONTINUE ORAL DIET CHANGED DIET TO SOFT, EASY CHEW WITH THIN LIQUID. 2. STRICT ASPIRATION PRECAUTIONS 3. MODIFIED BARIUM SWALLOW STUDY. D/W PT AND RNARJUN. POSTED ASPIRATION PRECAUTIONS SIGN.
--- NOTE | 2018-10-12 16:00 | NUR ---
NURSE NOTES: Patient discharged to home accompanied by her daughter and family in a private car. Prior to discharge, patient's condition was stable. V/S stable. Patient has no change in condition. Patient did not need pain medication for headache. Dr. Cosby prescribed norco, tylenol #3 and aspirin. Per [facility], [place] can not be filled. Dr. Cosby aware and said continue with tylenol #3 upon discharge.Patient and family can not wait for the delivery from [facility] pharmacy, will supervisor opening and picking the med from the pharmacy on their way home. Skin assessment done, skin intact, IV was removed, no s/s of infiltration. discharge instruction given to the patient and family. Patient and family know when to seek medical attention. Instructed patient and family to get medical attention as soon as possible when noted with s/s stroke. Escorted patient and family to the car and home meds were picked up from the pharmacy and given to the patient.
--- NOTE | 2018-10-13 12:12 | Discharge Summary ---
Discharge Summary Discharge Summary _ DATE OF ADMISSION: 10/09/2018 DATE OF DISCHARGE: 10/12/2018 DISCHARGED BY: Dr. Duglas Landis CONSULTANTS: Dr. Keagan Mathis [facility]: Patient is a 53-year-old female, who was diagnosed with CVA months ago, apparently started to have severe headache. She presented with 1 hour of blurred vision, increased weakness and worsened headache. She had been told she had problems with circulation to the brain. She denied chest pain or palpitations. She had nausea and vomiting x1. The pain was 9/10 and was located on the right frontal. There was no loss of vision but vision was blurry. She was also anxious. She denied any fever or chills, productive cough or dyspnea. There has been no dysuria or change in bowels. She had chronic weakness and decreased sensation on the left side. She has medical history significant for hypertension and diabetes. On evaluation at the ED, vital signs were stable. Blood work did not show any leukocytosis. Hemoglobin and hematocrit were stable. LFTs were elevated. Troponin was negative. Urinalyses showed 20-30 WBC, 0-2 RBC, 2+ leukocyte esterase negative nitrate. She was given IV hydration, Zofran and morphine. Head CT did not show any acute intracranial bleed, mass-effect or edema. There was mild atrophy of the brain and nonspecific white matter hypoattenuation probably due to chronic small vessel disease. She was then admitted for evaluation of headache. ID was consulted. She was given ceftriaxone empirically. Neurologist was consulted. She was placed on frequent neuro checks. Brain MRI showed 2 small areas of acute CVA in the right high parietal lobe and occipital region. It was no evidence of acute hemorrhage. She was continued on aspirin. CTA of the head was negative for cerebral vascular spasms. There was no high- grade stenosis identified. Carotid duplex scan did not show any significant plaque. Echocardiogram showed EF 55 to 60% with normal left ventricular size, function and wall motion. Deficits were improving. Per neurologist, likely with demonstration of recent stroke symptoms secondary to UTI. She was given physical and speech therapy. Urine culture showed mixed gram-positive organisms with low counts. She was eventually discharged home. FINAL DIAGNOSES: Acute CVA Headache UTI Old CVA with left hemiparesis DISPOSITION: Patient was discharged home. DISCHARGE MEDICATIONS: Refer to Discharge Medication List. DISCHARGE INSTRUCTIONS: Follow-up in a week. I have been assigned to complete a discharge summary on this account, I was not involved with the patient's management. Nikole Sifuentes NP October 13, 2018 12:12
== END 2018-10-12 16:00 | disposition home or self-care (01) | DRG 45 ==
LOC: EDBD 21:10 → EMR 21:24 → 2E 23:05 → EDBEDREQ 23:44 → 4E 10-11 17:51
DX: I63.9 Cerebral infarction, unspecified (principal); I69.354 Hemiplegia and hemiparesis following cerebral infarction affecting left non-dominant side; N39.0 Urinary tract infection, site not specified; I10 Essential (primary) hypertension; E11.9 Type 2 diabetes mellitus without complications; R51 Headache
CPT/HCPCS: 36415; 70450; 70496; 70551; 71045; 76700; 80048; 80053; 80061; 80076; 81003; 82550; 83036; 83880; 84443; 84484; 85025; 85610; 85730; 86703; 86705; 86709; 86803; 87086; 87340; 93005; 93306; 93880; 96365; 96375; 99285; J2405